=== PATIENT | male | born 1975 | race African-American/Black ===

== ENCOUNTER 2017-11-25 22:46 | Emergency (ER) | payer OTHER ==
[2017-11-26 00:29] VITALS: BP 122/74
--- NOTE | 2017-11-26 00:29 | ED ---
Quan Patten Jade, scribed for Amita Couch MD on 11/25/17 at 2333 . Substance Abuse/Use - HPI Summary HPI Summary: Pt is a 42 y/o male who presents to the ED s/p heroin overdose. He states he was snorting heroin with a friend in his car, and his friend threw him out. EMS happened to by driving by, and found him apneic. EMS gave him Narcan both intranasal and IV. Pt denies doing drugs often, or doing any other drugs. He now feels cold, but otherwise fine. - History Of Current Complaint Chief Complaint: EDOverdose Stated Complaint: OVERDOSE Time Seen by Provider: 11/25/17 22:50 Hx Obtained From: Patient, EMS Onset/Duration of Drug/ETOH Abuse: Hours Ingestion History: Type/Name Of Drug - Heroid Overdose Characteristics: Other - Nasal Aggravating Factor(s): Nothing Alleviating Factor(s): Nothing Associated Signs And Symptoms: Negative - Allergies/Home Medications Allergies/Adverse Reactions: Allergies Allergy/AdvReac Type Severity Reaction Status Date / Time No Known Allergies Allergy Verified 04/02/16 02:58 PMH/Surg Hx/FS Hx/Imm Hx Endocrine/Hematology History: Denies: Hx Diabetes Cardiovascular History: Denies: Hx Coronary Artery Disease, Hx Hypertension - Immunization History Date of Tetanus Vaccine: unknown Date of Influenza Vaccine: unknown Infectious Disease History: No Infectious Disease History: Denies: Traveled Outside the [place] in Last 30 Days - Family History Known Family History: Positive: Hypertension - Social History Alcohol Use: None Hx Substance Use: Yes Substance Use Type: Reports: Heroin Smoking Status (MU): Heavy Every Day Tobacco Smoker Review of Systems Constitutional: Other - S/P heroin overdose Positive: Other - Feels cold. Negative: Fever Negative: Myalgia All Other Systems Reviewed And Are Negative: Yes Physical Exam - Summary Physical Exam Summary: VITAL SIGNS: Reviewed. GENERAL: ~Patient is a well-developed and nourished male who is lying comfortable in the stretcher. Patient is not in any acute respiratory distress. HEAD AND FACE: No signs of trauma. No ecchymosis, hematomas or skull depressions. No sinus tenderness. EYES: PERRLA, EOMI x 2, No injected conjunctiva, no nystagmus. EARS: Hearing grossly intact. Ear canals and tympanic membranes are within normal limits. MOUTH: Oropharynx within normal limits. NECK: Supple, trachea is midline, no adenopathy, no JVD, no carotid bruit, no c- spine tenderness, neck with full ROM. CHEST: Symmetric, no tenderness at palpation LUNGS: Clear to auscultation bilaterally. No wheezing or crackles. CVS: Regular rate and rhythm, S1 and S2 present, no murmurs or gallops appreciated. ABDOMEN: Soft, non-tender. No signs of distention. No rebound no guarding, and no masses palpated. Bowel sounds are normal. EXTREMITIES: FROM in all major joints, no edema, no cyanosis or clubbing. NEURO: Alert and oriented x 3. No acute neurological deficits. Speech is normal and follows commands. SKIN: Dry and warm Triage Information Reviewed: Yes Vital Signs On Initial Exam: Initial Vitals Temp Pulse Resp BP Pulse Ox 97.6 F 99 20 128/84 100 11/25/17 22:53 11/25/17 22:53 11/25/17 22:53 11/25/17 22:53 11/25/17 22:53 Vital Signs Reviewed: Yes Diagnostics - Vital Signs Vital Signs Temp Pulse Resp BP Pulse Ox 11/25/17 22:53 97.6 F 99 20 128/84 100 - Laboratory Lab Statement: Any lab studies that have been ordered have been reviewed, and results considered in the medical decision making process. Re-Evaluation - Re-Evaluation First Eval Re-Evaluation Time: 00:11 Change: Improved Comment: Pt is stable in the ED, remains awake, and will be discharged. Course/Dx - Course Course Of Treatment: Pt is a 42 y/o male who presents to the ED s/p heroin overdose. He was snorting heroin with a friend in his car, and his friend threw him out. EMS found him apneic. EMS gave him Narcan both intranasal and IV. Pt denies doing any other drugs. He now feels cold. The first re-eval revealed the pt is stable in the ED and remains awake. Patient will be discharged with a final Dx of heroin overdose. Pt is agreeable with this plan. - Diagnoses Provider Diagnoses: Heroin overdose Discharge - Sign-Out/Discharge Documenting (check all that apply): Discharge/Admit/Transfer - Discharge - Discharge Plan Condition: Stable Disposition: HOME Patient Education Materials: Opioid Overdose (ED) Referrals: No Primary Care Phys,NOPCP [Primary Care Provider] - [facility] – [place] [facility] REFERRAL [Outside] - 3 Days Additional Instructions: RETURN TO EMERGENCY DEPARTMENT FOR ANY NEW OR WORSENING SYMPTOMS The documentation as recorded by the Quan gann Jade accurately reflects the service I personally performed and the decisions made by me, Amita Couch MD.
== END 2017-11-26 00:29 | disposition home or self-care (01) ==
LOC: ED 22:46
DX: T40.1X1A Poisoning by heroin, accidental (unintentional), initial encounter (principal); Y92.9 Unspecified place or not applicable; F17.210 Nicotine dependence, cigarettes, uncomplicated
CPT/HCPCS: 99284

== ENCOUNTER 2019-09-10 19:57 | Emergency (ER) | payer SELFPAY ==
[2019-09-10 20:16] VITALS: BP 138/90
--- NOTE | 2019-09-10 21:03 | UC ---
Skin Complaint HPI - HPI Summary HPI Summary: 44 year old male presents with complaints of irritation to his upper back. States he noticed some irritation yesterday but today he woke up from a nap today feeling a burning sensation, he reached back to scratch his back, and noticed his back was wet. Patient did note that he was working on the floor with his back near a baseboard heater yesterday but didn't think it was ever hot enough to burn him. Denies fever, chills, changes in medications, diet, soaps, detergents, or known contact with environmental irritants. - History of Current Complaint Chief Complaint: UCSkin Time Seen by Provider: 09/10/19 20:32 Stated Complaint: BACK ISSUE Pain Intensity: 0 - Allergy/Home Medications Allergies/Adverse Reactions: Allergies Allergy/AdvReac Type Severity Reaction Status Date / Time No Known Allergies Allergy Verified 09/10/19 20:05 Home Medications: Home Medications Cephalexin CAP* [Keflex 500 CAP*] 500 mg PO TID #20 cap 09/10/19 [Rx] PMH/Surg Hx/FS Hx/Imm Hx - Surgical History Surgical History: None - Family History Known Family History: Positive: None - Pt denies, Hypertension - Social History Alcohol Use: None Substance Use Type: None Smoking Status (MU): Heavy Every Day Tobacco Smoker Physical Exam Vital Signs: Initial Vital Signs Temp 98.7 F 09/10/19 20:16 Pulse 92 09/10/19 20:16 Resp 18 09/10/19 20:16 BP 138/90 09/10/19 20:16 Pulse Ox 100 09/10/19 20:16 Images Front/Back of Body, Lg ([place]): 1 - Erythema with several large buellae, single buella open with serous drainage. Course/Dx - Differential Diagnoses - Skin Complaint Differential Diagnoses: Allergic Reaction, Cellulitis, Poison [place], Poison [place] - Diagnoses Provider Diagnosis: Second degree burn of upper back Discharge ED - Sign-Out/Discharge Documenting (check all that apply): Patient Departure All imaging exams completed and their final reports reviewed: No Studies - Discharge Plan Condition: Stable Disposition: HOME Prescriptions: Cephalexin CAP* [Keflex 500 CAP*] 500 mg PO TID #20 cap Patient Education Materials: Second Degree Burn (ED) Referrals: No Primary Care Phys,NOPCP [Primary Care Provider] - [facility] [Outside] - 3 Days (Call for appointment.) Additional Instructions: You appear to have a 2nd degree burn to your upper back likely from extended exposure to the base board heater you were working near. We will start you on an antibiotic to treat for any infection. Start cephalexin 500 mg 1 capsule 3 times a day for 7 days. We gave you the first dose in the clinic. Keep the wound clean with a mild soap and water. You may shower as normal. Apply a thin layer of antibiotic ointment to the affected area and cover with a non-stick bandage. You should change this twice a day. Take acetaminophen (Tylenol) or ibuprofen (Advil, Motrin) according to directions as needed for pain. Follow up at [facility] in 3-5 days for recheck of the wound especially if no improvement. Call for an appointment. Seek immediate medical attention in the emergency room if you develop a fever greater than 100.5 F, the redness rapidly spreads, you have pain that is not managed with acetaminophen or ibuprofen, you have any pus draining from the wound, or any worsening of symptoms. - Billing Disposition and Condition Condition: STABLE Disposition: Home
[2019-09-10] MEDS ORDERED: Cephalexin CAP* 500 MG PO ONE (21:08)
== END 2019-09-10 21:28 | disposition home or self-care (01) ==
LOC: UCEAST 19:57
DX: T21.23XA Burn of second degree of upper back, initial encounter (principal); X16.XXXA Contact with hot heating appliances, radiators and pipes, initial encounter; Y93.89 Activity, other specified; Y92.9 Unspecified place or not applicable; F17.200 Nicotine dependence, unspecified, uncomplicated
CPT/HCPCS: 99212; A9270-GY; G0463

== ENCOUNTER 2023-05-02 12:42 | Inpatient (IN) ==
[2023-05-02] MEDS ORDERED: Ondansetron 4 mg VIAL 2 MG/ML 2 ml VIAL IV PRN (12:57)
[2023-05-02] MEDS ORDERED: Ondansetron ODT 4 mg TAB 4 MG TAB PO PRN (12:57)
[2023-05-02] MEDS ORDERED: Naloxone Nasal Spray 4 MG/0.1 ML NASAL.SPR INTRANASAL PRN (13:00)
[2023-05-03] MEDS: Multivitamins/Minerals TAB PO SCH (10:39)
[2023-05-04] MEDS: Multivitamins/Minerals TAB PO SCH (09:09)
[2023-05-05] MEDS: Multivitamins/Minerals TAB PO SCH (10:16)
[2023-05-05] MEDS: Morphine 2 MG/ML SYRINGE IV PRN (22:45)
[2023-05-06] MEDS: Multivitamins/Minerals TAB PO SCH (09:58)
[2023-05-07] MEDS: Morphine 2 MG/ML SYRINGE IV PRN (02:19)
[2023-05-07] MEDS: Multivitamins/Minerals TAB PO SCH (08:47)
[2023-05-08] MEDS: Multivitamins/Minerals TAB PO SCH (10:33)
[2023-05-09 06:31] VITALS: BP 129/83
[2023-05-09] MEDS: Multivitamins/Minerals TAB PO SCH (09:55)
== END 2023-05-09 11:45 | disposition home or self-care (01) | DRG 351 ==
LOC: SSU → OBSVTOIN 12:42
PROVIDERS: ADMIT Physician Assistant; ATTEND Orthopaedic Surgery